=== PATIENT | female | born 1990 | race Caucasian/White ===

== ENCOUNTER → 2017-11-25 06:51 | Outpatient (CLI) | payer BC ==
[2016-01-17 05:05] VITALS: BMI 35.0
[~2017-11-25 06:51] MED LIST: AUGMENTIN 875-11 TAB PO; HYDROCODON-ACE1 EAC7 PO; IBUPROFEN600 MG PO; PRENATAL COMPLE1 TAB; PROMETRIUM200 MG
[2017-11-25 08:17] LABS: BASOPHILS 0.1 % (0-2); EOSINOPHILS 0.7 % (0-7); HEMATOCRIT 35.6 % (36.0-48.0); HEMOGLOBIN 12.2 g/dL (12-16); IMMATURE GRANULOCYTES 0.4 % (0-5); LYMPHOCYTES 13.5 % (15-50); MCH 31.9 pg (26.0-34.0); MCHC 34.3 g/dL (31.0-37.0); MONOCYTES 6.2 % (2-11); NEUTROPHILS 79.1 % (40-80); PLATELET COUNT 276 10x3/uL (130-400); RBC 3.83 10x6/uL (4.00-5.40); RDW 13.3 % (11.5-14.5); WBC 14.4 10x3/uL (4.8-10.8)
== END | disposition home or self-care (01) ==
LOC: D.LDO 06:51
PROVIDERS: Obstetrics & Gynecology
DX: O26.852 Spotting complicating pregnancy, second trimester (principal); Z3A.24 24 weeks gestation of pregnancy